=== PATIENT | male | born 1950 | race Caucasian/White ===

== ENCOUNTER 2017-05-30 09:32 | Emergency (ER) | payer BC, MEDICARE ==
[~2017-05-30] VITALS: Ht 175.3 cm; Wt 69.1 kg
[~2017-05-30 09:32] MED LIST: FLOMAX0.4 MG PO; HCTZ PO; NORCO 325 MG-51 TAB PO; PROMETHAZINE12.5 M5 PO
[2017-05-30 09:36] VITALS: TEMP 96.7
[2017-05-30] MEDS ORDERED: PROSCAR 5MG5 MG PO (10:30)
[2017-05-30] MEDS ORDERED: PREDNISONE20 MG PO (12:56)
[2017-05-30] MEDS ORDERED: PERCOCET 325 MG1 TA2 PO (12:56)
[2017-05-30 13:14] VITALS: BP 141/88; PULSE 81
== END 2017-05-30 13:18 | disposition home or self-care (01) ==
LOC: COL.ER 09:32
DX: M54.32 Sciatica, left side (principal); I10 Essential (primary) hypertension; F17.210 Nicotine dependence, cigarettes, uncomplicated
CPT/HCPCS: J1170; J1885; J2360

== ENCOUNTER → 2017-07-07 | Outpatient (CLI) | payer BC, MEDICARE ==
[~2017-07-07] MED LIST changes: +PERCOCET 325 MG1 TA2 PO; +PREDNISONE20 MG PO; +PROSCAR 5MG5 MG PO
== END ==
LOC: MHCPAIN 10:27
DX: G89.29 Other chronic pain (principal); M47.817 Spondylosis without myelopathy or radiculopathy, lumbosacral region; M54.16 Radiculopathy, lumbar region; M53.3 Sacrococcygeal disorders, not elsewhere classified; M48.061 Spinal stenosis, lumbar region without neurogenic claudication
CPT/HCPCS: G0463

== ENCOUNTER → 2017-07-23 | Outpatient (CLI) | payer BC, MEDICARE | LOC: MHCPAIN 09:41 | DX: M47.817 Spondylosis without myelopathy or radiculopathy, lumbosacral region (principal); M25.78 Osteophyte, vertebrae | CPT/HCPCS: J1100; Q9967 ==

== ENCOUNTER → 2017-08-05 | Outpatient (CLI) | payer BC, MEDICARE | LOC: MHCPAIN 13:51 | DX: G89.29 Other chronic pain (principal); M47.817 Spondylosis without myelopathy or radiculopathy, lumbosacral region; M54.16 Radiculopathy, lumbar region; M48.061 Spinal stenosis, lumbar region without neurogenic claudication | CPT/HCPCS: G0463 ==

== ENCOUNTER 2017-08-12 11:15 | Outpatient (RCR) | payer BC, MEDICARE | END 2017-08-12 12:00 | disposition home or self-care (01) | LOC: WSPT 11:15 | DX: M48.061 Spinal stenosis, lumbar region without neurogenic claudication (principal); M99.73 Connective tissue and disc stenosis of intervertebral foramina of lumbar region; M51.26 Other intervertebral disc displacement, lumbar region ==

== ENCOUNTER → 2017-09-15 | Outpatient (CLI) | payer BC, MEDICARE | LOC: MHCPAIN 08:39 | DX: G89.29 Other chronic pain (principal); M47.817 Spondylosis without myelopathy or radiculopathy, lumbosacral region; M54.16 Radiculopathy, lumbar region; M53.3 Sacrococcygeal disorders, not elsewhere classified; M48.061 Spinal stenosis, lumbar region without neurogenic claudication | CPT/HCPCS: G0463 ==

== ENCOUNTER 2018-01-06 09:45 | Outpatient (RCR) | payer BC, MEDICARE | END 2018-02-23 | disposition still patient (30) | LOC: WSPT | DX: M51.26 Other intervertebral disc displacement, lumbar region (principal); M48.061 Spinal stenosis, lumbar region without neurogenic claudication; M54.16 Radiculopathy, lumbar region; M62.830 Muscle spasm of back; Z98.890 Other specified postprocedural states | CPT/HCPCS: G8978-GP; G8979-GP ==

== ENCOUNTER → 2019-05-09 | Outpatient (CLI) | payer BC | LOC: COL.RAD 12:30 | DX: K50.10 Crohn's disease of large intestine without complications (principal); J98.4 Other disorders of lung; Z85.51 Personal history of malignant neoplasm of bladder | CPT/HCPCS: Q9967 ==

== ENCOUNTER 2019-05-16 13:39 | Day surgery (SDC) | payer BC ==
[~2019-05-16] VITALS: Ht 180.3 cm; Wt 72.0 kg
[2019-05-16 14:09] VITALS: BP 125/82; PULSE 88; TEMP 99.1
[2019-05-16] MEDS ORDERED: PRINZIDE 25 MG-1 TAB PO (14:15)
[2019-05-16] MEDS ORDERED: LYRICA 25MG CAP25 MG PO (14:15)
[2019-05-16] MEDS ORDERED: LIPITOR20 MG PO (14:16)
[2019-05-16] MEDS ORDERED: FLOMAX 0.40.4 MG/CAP PO (14:16)
[2019-05-16] MEDS ORDERED: PROSCAR 5MG5 MG PO (14:16)
[2019-05-16] MEDS ORDERED: B COMPLEX & B121 TAB PO (14:17)
[2019-05-16 16:20] VITALS: BP 128/73; PULSE 88; TEMP 98.1
--- NOTE | 2019-05-16 16:20 | NUR ---
Patient arrives to [facility] via cart, accompanied by [facility] RN Mia. Bedside report received. Patient is drowsy, but oriented. He ambulates with standby assist to the recliner in bay 4. Monitoring is applied - VSS and WNL on room air. He denies pain or nausea. He requests and receives pepsi to drink. He refuses food, as he would like to go out to eat upon dismissal. His is at the bedside.
[2019-05-16 16:35] VITALS: BP 107/71; PULSE 71
[2019-05-16 16:50] VITALS: BP 114/68; PULSE 71
--- NOTE | 2019-05-16 17:05 | NUR ---
Dr. Thomas is at the bedside at this time.
--- NOTE | 2019-05-16 17:13 | NUR ---
Discharge criteria has been met. Discharge instructions discussed, denies any questions, and verbalizes understanding. PIV removed with catheter intact and hemostasis achieved. He is changing to clothing independently.
--- NOTE | 2019-05-16 17:18 | NUR ---
Patient is escorted to the exit via wheelchair by staff. Discharged to home with ride in private vehicle at 1718.
== END 2019-05-16 17:18 | disposition home or self-care (01) ==
LOC: SDCO 13:39
DX: K29.70 Gastritis, unspecified, without bleeding (principal); K29.80 Duodenitis without bleeding; K44.9 Diaphragmatic hernia without obstruction or gangrene; Q39.8 Other congenital malformations of esophagus; D12.0 Benign neoplasm of cecum; D12.2 Benign neoplasm of ascending colon; D12.5 Benign neoplasm of sigmoid colon; K52.9 Noninfective gastroenteritis and colitis, unspecified; K57.30 Diverticulosis of large intestine without perforation or abscess without bleeding; K62.89 Other specified diseases of anus and rectum; Z88.1 Allergy status to other antibiotic agents; Z88.0 Allergy status to penicillin; Z79.899 Other long term (current) drug therapy; E87.6 Hypokalemia; Z86.010 Personal history of colon polyps
CPT/HCPCS: J2250; J3010; J7030

== ENCOUNTER → 2019-05-17 | Outpatient (CLI) | payer BC ==
[~2019-05-17] MED LIST changes: +B COMPLEX & B121 TAB PO; +FLOMAX 0.40.4 MG/CAP PO; +LIPITOR20 MG PO; +LYRICA 25MG CAP25 MG PO; +PRINZIDE 25 MG-1 TAB PO
== END ==
LOC: COL.RAD 13:30
DX: Z01.812 Encounter for preprocedural laboratory examination (principal); R91.8 Other nonspecific abnormal finding of lung field
CPT/HCPCS: Q9967

== ENCOUNTER → 2019-12-01 | Outpatient (CLI) | payer BC | LOC: COL.RAD 10:43 | DX: R91.8 Other nonspecific abnormal finding of lung field (principal) | CPT/HCPCS: Q9967 ==

== ENCOUNTER → 2020-05-24 | Outpatient (CLI) | payer BC | LOC: MC.RAD 12:58 | DX: N64.89 Other specified disorders of breast (principal) ==